=== PATIENT | male | born 1990 | race Caucasian/White ===

== ENCOUNTER → 2019-07-16 | Outpatient (CLI) | payer MEDICARE, MEDICAID ==
--- NOTE | 2019-07-16 12:29 | RADIOLOGY REPORT (SQ) ---
EXAM DESCRIPTION: MRI LUMBAR SPINE WITHOUT COMPLETED DATE/TIME: 07/16/2019 9:35 am REASON FOR STUDY: S32.028S OTHER FRACTURE OF SECOND LUMBAR VERTEBRA, SEQUELA S32.028S OTHER FRACTUR E OF SECOND LUMBAR VERTEBRA, SEQUELA COMPARISON: None. TECHNIQUE: Sagittal and Axial imaging includes T1, T2, STIR and gradient echo sequences. Coronal T2/ HASTE imaging. LIMITATIONS: None. FINDINGS: VISUALIZED UPPER ABDOMEN: Limited evaluation. No acute or suspicious findings suggested. SEGMENTATION: No transitional anatomy. The lowest well-developed disc space is labeled L5-S1. ALIGNMENT: Anatomic. VERTEBRAE: Mild anterior superior endplate depression at L2. There is no associated marrow edema at this time. BONE MARROW: Normal. No marrow replacement or reactive changes. DISC SIGNAL: Normal. No significant abnormal signal or loss of height. POSTERIOR ELEMENTS: Generally intact. No pars defect evident. HARDWARE: None in the spine. CORD AND CONUS: Normal in size and signal intensity. Conus at the T12-L1 level. SOFT TISSUES: No aortic aneurysm seen. No bulky retroperitoneal adenopathy or mass. No paraspinal mas s or fluid. L1-L2: Shallow asymmetric disc bulge to the right, involving the neural foramen. This mildly displac es the traversing nerve root. This may contact the exiting nerve root outside of the neural foramen. L2-L3: No significant spinal stenosis or exit foraminal stenosis. L3-L4: No significant spinal stenosis or exit foraminal stenosis. L4-L5: Broad-based disc bulge that appears to displace the traversing nerve roots bilaterally. No fo raminal stenosis. L5-S1: No significant spinal stenosis or exit foraminal stenosis. LOWER THORACIC: Incompletely imaged. No stenosis seen. SACRUM: Visualized upper sacrum intact. OTHER: No other significant findings. IMPRESSION: 1. Limited fracture involving the anterior superior aspect of the L2 vertebra. Not acu te. There is no marrow edema. 2. Disc changes at L1-2 and L4-5 as described. TECHNICAL DOCUMENTATION: JOB ID: [id number] [employer]- All Rights Reserved Reading location - IP/workstation name: [email or web address]
--- NOTE | 2019-07-16 15:01 | RADIOLOGY REPORT (SQ) ---
EXAM DESCRIPTION: NM WHOLE BODY BONE SCAN COMPLETED DATE/TIME: 07/16/2019 12:22 pm REASON FOR STUDY: S32.028S OTHER FRACTURE OF SECOND LUMBAR VERTEBRA, SEQUELA S32.028S OTHER FRACTUR E OF SECOND LUMBAR VERTEBRA, SEQUELA COMPARISON: Lumbar MRI 07/16/2019 RADIONUCLIDE AND DOSE: 20 millicuries Tc99m HDP. The route of agent administration: Intravenous. ADDITIONAL DRUGS AND DOSES: None. TECHNIQUE: Routine delayed images at 3 hours post radionuclide injection acquired of the bony skelet on including anterior and posterior whole-body projections and additional focused images as needed. LIMITATIONS: None. FINDINGS: BONES: Normal visualization without areas of photopenia or increased bony uptake of radiop harmaceutical. KIDNEYS: Symmetric excretion without obstruction. OTHER: No other significant finding. IMPRESSION: NORMAL BONE SCAN. COMMENT: Quality measure 147: Current bone scan is compared with any available plain radiographs, p rior bone scans, and CT/MRI. TECHNICAL DOCUMENTATION: JOB ID: [id number] [employer]- All Rights Reserved Reading location - IP/workstation name: [email or web address]
== END ==
LOC: RAD 08:09
PROVIDERS: ATTEND Physician Assistant
DX: S32.028S Other fracture of second lumbar vertebra, sequela (principal); X58.XXXS Exposure to other specified factors, sequela
CPT/HCPCS: 72148; 78306; A9561; Q9969

== ENCOUNTER → 2020-06-03 | Outpatient (CLI) | payer MEDICARE, MEDICAID ==
--- NOTE | 2020-06-03 10:58 | RADIOLOGY REPORT (SQ) ---
EXAM DESCRIPTION: U/S ABDOMEN LIMITED W/O DOP IMAGES COMPLETED DATE/TIME: 06/03/2020 9:31 am REASON FOR STUDY: (R10.11)RIGHT UPPER QUADRANT PAIN R10.11 RIGHT UPPER QUADRANT PAIN COMPARISON: None. TECHNIQUE: Dynamic and static grayscale images acquired of the abdomen and recorded on PACS. Additio nal selected color Doppler and spectral images recorded. LIMITATIONS: None. FINDINGS: PANCREAS: No masses. Visualized pancreatic duct normal caliber. LIVER: Hepatomegaly, measuring on the order of 21.7 cm. Hepatic steatosis. No focal mass. No intra hepatic biliary dilatation. LIVER VASCULATURE: Normal directional flow of the main portal vein and hepatic veins. GALLBLADDER: No stones. Normal wall thickness. No pericholecystic fluid. ULTRASOUND-DETECTED BRYANT'S SIGN: Negative. INTRAHEPATIC DUCTS AND COMMON DUCT: CBD and intrahepatic ducts normal caliber. No filling defects. INFERIOR VENA CAVA: Normal flow. AORTA: No aneurysm. RIGHT KIDNEY: Normal size. Normal echogenicity. No solid or suspicious masses. No hydronephrosis. No calcifications. PERITONEAL AND RIGHT PLEURAL SPACE: No ascites or effusions. OTHER: No other significant findings. IMPRESSION: Hepatomegaly with hepatic steatosis. No acute findings. TECHNICAL DOCUMENTATION: JOB ID: [id number] [employer]- All Rights Reserved Reading location - IP/workstation name: [email or web address]
== END ==
LOC: RAD 08:47
PROVIDERS: ATTEND Internal Medicine Gastroenterology
DX: K76.0 Fatty (change of) liver, not elsewhere classified (principal); R16.0 Hepatomegaly, not elsewhere classified; R10.11 Right upper quadrant pain
CPT/HCPCS: 76705